=== PATIENT | male | born 1980 ===

== ENCOUNTER 2022-05-05 16:48 | Emergency (ER) | payer OTHER ==
[~2022-05-05] VITALS: Ht 177.8 cm; Wt 113.6 kg
[2022-05-05 21:43] VITALS: BP 131/84
== END 2022-05-05 21:45 | disposition home or self-care (01) ==
LOC: EMS 17:06
DX: S83.91XA Sprain of unspecified site of right knee, initial encounter (principal); D16.21 Benign neoplasm of long bones of right lower limb; X50.0XXA Overexertion from strenuous movement or load, initial encounter; Y93.89 Activity, other specified; Y92.89 Other specified places as the place of occurrence of the external cause; Y99.8 Other external cause status
CPT/HCPCS: 29530; 99283